=== PATIENT | female | born 1985 | race Caucasian/White ===

== ENCOUNTER → 2021-01-10 | Outpatient (CLI) | payer MEDICAID ==
[2021-01-10 14:39] LABS: BASO # 0.07 (0.02-0.10); EOS # 0.42 (0.04-0.40); EOS % 3.2 % (1.0-5.0); HEMATOCRIT 40.7 % (37.0-47.0); HEMOGLOBIN 13.7 g/dL (12.5-16.0); LYMPH# 3.33 (1.50-4.00); MEAN CELL VOLUME 86 fl (78-100); MEAN CORPUSCULAR HEMOGLOBIN 29 pg (27-31); MEAN CORPUSCULAR HGB CONC 34 g/dL (33-37); MEAN PLATELET VOLUME 10.5 fl (7.4-10.4); MONO # 0.94 (0.20-0.80); NEU # 8.21 (1.40-6.50); PLATELET COUNT 431 K/mm3 (130-400); RED BLOOD COUNT 4.73 M/mm3 (4.10-5.30); RED CELL DISTRIBUTION WIDTH 12.7 % (11.5-14.5)
[2021-01-10 14:47] LABS: POTASSIUM 4.1 mmol/L (3.5-5.1)
[2021-01-10 14:49] LABS: CALCIUM 9.1 mg/dL (8.3-10.5)
[2021-01-10 14:50] LABS: TOTAL PROTEIN 7.4 g/dL (6.4-8.3)
[2021-01-10 14:52] LABS: TOTAL BILIRUBIN 0.2 mg/dL (0.2-1.2)
== END ==
LOC: AMSURD 14:13
PROVIDERS: Physician Assistant
DX: I48.91 Unspecified atrial fibrillation (principal); I45.10 Unspecified right bundle-branch block